=== PATIENT | female | born 1960 | race Caucasian/White ===

== ENCOUNTER 2021-06-14 13:00 | Emergency (ER) | payer SELFPAY ==
[~2021-06-14] VITALS: Ht 160 cm; Wt 81.6 kg
[2021-06-14] MEDS ORDERED: ACETAMINOPHEN 325 MG TAB PO ONE (13:30)
[2021-06-14] MEDS ORDERED: SODIUM CHLORIDE 0.9% 1000ML 1,000 ML IV SCH (13:30)
[2021-06-14] MEDS ORDERED: METOCLOPRAMIDE HCL 10 MG/2ML VIAL IV ONE (13:30)
[2021-06-14] MEDS ORDERED: CASIRIVIMAB/IMDEVIMAB 10 ML in SODIUM CHLORIDE 0.9% 100 ML IV ONE (13:30)
[2021-06-14] MEDS ORDERED: DIPHENHYDRAMINE HCL 25 MG CAP PO ONE (13:30)
== END 2021-06-14 14:02 | disposition home or self-care (01) ==
LOC: ER 13:24
DX: U07.1 COVID-19 (principal); R05.9 Cough, unspecified; J44.9 Chronic obstructive pulmonary disease, unspecified; Z86.718 Personal history of other venous thrombosis and embolism
CPT/HCPCS: 99282

== ENCOUNTER → 2022-04-08 | Day surgery (SDC) | payer BC, SELFPAY ==
[2022-04-04 08:18] LABS: BASOPHILS % 0.3 % (0.0-1.0); EOSINOPHILS # (AUTO) 0.1 (0.0-0.4); EOSINOPHILS % 0.8 % (0.0-6.0); HEMATOCRIT 44.8 % (34.2-44.1); LYMPHOCYTES # (AUTO) 2.5 (1.0-3.2); LYMPHOCYTES % 40.5 % (18.0-39.1); MEAN CORPUSCULAR HEMOGLOBIN 31.9 pg (28-32); MEAN CORPUSCULAR HGB CONC 33.5 g/dL (31-35); MEAN CORPUSCULAR VOLUME 95.3 fL (81-99); MONOCYTES # (AUTO) 0.4 (0.2-0.8); MONOCYTES % 7.1 % (4.4-11.3); NEUTROPHILS # (AUTO) 3.2 (2.1-6.9); PLATELET COUNT 239 x10e3/uL (140-360); RED CELL DISTRIBUTION WIDTH 11.9 % (11.7-14.4)
[~2022-04-08] MED LIST: ACETAMINOPHEN 1000 MG/100 ML IV ONE; AMPICILLIN PO; CYCLOBENZAPRINE5 MG PO; DEXAMETHASONE SOD PHOS INJ 4 MG/ML SDV ONE; ELIQUIS5 MG PO; FENTANYL CITRATE/PF 100MCG/2 ML INJ ONE; LIDOCAINE HCL 2% LOCAL INJ 5 ML SDV VIAL INJ ONE; LOVENOX40 MG/0.4 SC; MIDAZOLAM HCL 2 MG/2 ML VIAL ONE; ONDANSETRON HCL INJ 2MG/ML 2ML 2 MG/ML VIAL ONE; PHENERGAN25 MG/1 ML PO; POVIDONE IODINE 0.05% 0.05 % ML PO ONE; PROPOFOL IV EMULSION 10 MG/ML 20 ML VIAL ONE; SEVOFLURANE INHAL SOLN 250 ML PEN BTL ONE; VENLAFAXINE HCL75 MG PO
[2022-04-08 09:30] VITALS: BP 120/87
== END | disposition home or self-care (01) ==
LOC: OR 05:49
PROVIDERS: ATTEND Orthopaedic Surgery
DX: M75.112 Incomplete rotator cuff tear or rupture of left shoulder, not specified as traumatic (principal); M19.012 Primary osteoarthritis, left shoulder; M75.52 Bursitis of left shoulder; M75.42 Impingement syndrome of left shoulder; J40 Bronchitis, not specified as acute or chronic; F41.9 Anxiety disorder, unspecified; Z88.6 Allergy status to analgesic agent; Z88.8 Allergy status to other drugs, medicaments and biological substances; Z01.810 Encounter for preprocedural cardiovascular examination; Z01.812 Encounter for preprocedural laboratory examination; Z01.818 Encounter for other preprocedural examination; Z20.822 Contact with and (suspected) exposure to COVID-19; Z79.02 Long term (current) use of antithrombotics/antiplatelets; Z79.899 Other long term (current) drug therapy; Z86.718 Personal history of other venous thrombosis and embolism
CPT/HCPCS: 0223U; 29826; 29827; 29999; 36415; 71046; 85025; 93005; C1713 ×2; J0690; J2250; J3010; J1100; J2001; J2405

== ENCOUNTER 2022-10-06 16:06 | Inpatient (IN) | payer OTHER ==
[~2022-10-06] VITALS: Ht 160 cm; Wt 81.6 kg
[~2022-10-06 16:06] MED LIST changes: -ACETAMINOPHEN 1000 MG/100 ML IV ONE; -DEXAMETHASONE SOD PHOS INJ 4 MG/ML SDV ONE; -FENTANYL CITRATE/PF 100MCG/2 ML INJ ONE; -LIDOCAINE HCL 2% LOCAL INJ 5 ML SDV VIAL INJ ONE; -MIDAZOLAM HCL 2 MG/2 ML VIAL ONE; -ONDANSETRON HCL INJ 2MG/ML 2ML 2 MG/ML VIAL ONE; -POVIDONE IODINE 0.05% 0.05 % ML PO ONE; -PROPOFOL IV EMULSION 10 MG/ML 20 ML VIAL ONE; -SEVOFLURANE INHAL SOLN 250 ML PEN BTL ONE
[2022-10-06 16:36] VITALS: BP 140/92
[2022-10-06 16:49] VITALS: BP 140/92
[2022-10-06] MEDS ORDERED: SODIUM CHLORIDE 0.9% 250ML 250 ML ONE (17:09)
[2022-10-06 17:12] VITALS: BP 140/92
[2022-10-06 17:24] LABS: ABG HCO3 25 mmol/L (22-26); ABG PCO2 35 mmHg (35-45); ABG PH 7.45 (7.35-7.45); ABG PO2 83 mmHg (80-105); ABG TCO2 26
[2022-10-06] MEDS ORDERED: VITAMIN B12 IM/IV (17:31)
[2022-10-06] MEDS ORDERED: LIDODERM TOP (17:31)
[2022-10-06] MEDS ORDERED: VENTOLIN HFA18 GM INH (17:32)
[2022-10-06 17:56] LABS: CLARITY,URINE CLEAR (CLEAR); COLOR,URINE YELLOW (YELLOW); KETONES,URINE NEGATIVE (NEGATIVE); LEUKOCYTE ESTERASE ,URINE NEGATIVE (NEGATIVE); NITRITE,URINE NEGATIVE (NEGATIVE); PROTEIN,URINE DIPSTICK NEGATIVE (NEGATIVE); RBC,URINE 0-5 /HPF (0-5); URINE UROBILINOGEN 0.2 mg/dL (0.2 - 1); WBC,URINE (MAN) 0-5 /HPF (0-5)
[2022-10-06 17:57] LABS: BACTERIA,URINE RARE /HPF; EPITHELIAL CELLS,URINE FEW /LPF
[2022-10-06 18:29] LABS: BASOPHILS # (AUTO) 0.1 (0.0-0.1); BASOPHILS % 0.6 % (0.0-1.0); EOSINOPHILS # (AUTO) 0.1 (0.0-0.4); EOSINOPHILS % 1.1 % (0.0-6.0); HEMATOCRIT 43.9 % (34.2-44.1); HEMOGLOBIN 13.9 g/dL (12.0-16.0); LYMPHOCYTES # (AUTO) 4.1 (1.0-3.2); LYMPHOCYTES % 40.7 % (18.0-39.1); MEAN CORPUSCULAR HEMOGLOBIN 32.2 pg (28-32); MEAN CORPUSCULAR HGB CONC 31.7 g/dL (31-35); MEAN CORPUSCULAR VOLUME 101.6 fL (81-99); MONOCYTES % 9.5 % (4.4-11.3); NEUTROPHILS # (AUTO) 4.4 (2.1-6.9); NEUTROPHILS % 43.7 % (38.7-80.0); PLATELET COUNT 269 x10e3/uL (140-360); RED BLOOD COUNT 4.32 x10e6/uL (3.6-5.1); RED CELL DISTRIBUTION WIDTH 12.3 % (11.7-14.4)
[2022-10-06] MEDS ORDERED: ALBUTEROL/IPRATROPIUM 3 ML NEB NEB PRN (18:30)
[2022-10-06] MEDS ORDERED: ACETAMINOPHEN 325 MG TAB PO PRN (18:30)
[2022-10-06] MEDS ORDERED: GUAIFENESIN/DEXTROMETHORPHAN LIQD 5 ML UDC NG PRN (18:30)
[2022-10-06 18:52] LABS: ALBUMIN 2.5 g/dL (3.5-5.0); ALBUMIN/GLOBULIN RATIO 0.7 (0.8-2.0); ANION GAP 12.4 mmol/L (8-16); CALCIUM 8.4 mg/dL (8.4-10.2); CREATININE, SERUM 0.9 mg/dL (0.57-1.11); POTASSIUM 4.4 mmol/L (3.5-5.1)
[2022-10-06 20:00] VITALS: BP 123/77
[2022-10-06] MEDS ORDERED: METHYLPREDNISOLONE SOD SUCC 40 MG/ML VIAL 1ML IV ONE (20:30)
[2022-10-06] MEDS: FAMOTIDINE 20 MG/2 ML VIAL IV SCH (20:45)
[2022-10-06] MEDS: BENZONATATE 100 MG CAP PO SCH (20:45)
[2022-10-06 21:00] VITALS: BP 123/77
[2022-10-06] MEDS: DIPHENHYDRAMINE HCL 25 MG CAP PO PRN (21:21)
[2022-10-07] VITALS (7 sets, daily range): BP systolic 121–142; BP diastolic 81–90
[2022-10-07] MEDS ORDERED: CYCLOBENZAPRINE HCL 10 MG TAB PO SCH (01:15)
[2022-10-07] MEDS ORDERED: PROMETHAZINE HCL 25 MG TAB PO SCH (01:15)
[2022-10-07] MEDS: BENZONATATE 100 MG CAP PO SCH ×3 (05:20→22:20)
[2022-10-07] MEDS: FAMOTIDINE 20 MG/2 ML VIAL IV SCH ×2 (09:00→17:00)
[2022-10-07] MEDS: APIXABAN 5 MG TABLET PO SCH ×2 (09:00→17:00)
[2022-10-07] MEDS ORDERED: PANTOPRAZOLE SOD 40 MG TABEC PO ONE (09:30)
[2022-10-07] MEDS: METHYLPREDNISOLONE SOD SUCC 40 MG/ML VIAL 1ML IV SCH ×2 (09:46→20:55)
[2022-10-07] MEDS: ALBUTEROL/IPRATROPIUM 3 ML NEB NEB PRN (11:03)
[2022-10-07] MEDS: DIPHENHYDRAMINE HCL 25 MG CAP PO PRN (20:37)
[2022-10-07] MEDS: HYDROCODONE/CHLORPHENIRAMINE 5 ML LIQCR PO PRN (20:37)
[2022-10-08] VITALS (8 sets, daily range): BP systolic 113–137; BP diastolic 78–97
[2022-10-08 05:54] LABS: BASOPHILS % 0.4 % (0.0-1.0); HEMATOCRIT 41.6 % (34.2-44.1); HEMOGLOBIN 13.4 g/dL (12.0-16.0); LYMPHOCYTES # (AUTO) 1.3 (1.0-3.2); LYMPHOCYTES % 15.2 % (18.0-39.1); MEAN CORPUSCULAR HEMOGLOBIN 32.1 pg (28-32); MEAN CORPUSCULAR HGB CONC 32.2 g/dL (31-35); MEAN CORPUSCULAR VOLUME 99.8 fL (81-99); MONOCYTES # (AUTO) 0.4 (0.2-0.8); MONOCYTES % 4.9 % (4.4-11.3); NEUTROPHILS # (AUTO) 6.2 (2.1-6.9); NEUTROPHILS % 74.8 % (38.7-80.0); PLATELET COUNT 250 x10e3/uL (140-360); RED BLOOD COUNT 4.17 x10e6/uL (3.6-5.1); RED CELL DISTRIBUTION WIDTH 11.9 % (11.7-14.4)
[2022-10-08] MEDS: BENZONATATE 100 MG CAP PO SCH ×3 (06:03→22:25)
[2022-10-08 06:24] LABS: ALBUMIN 2.5 g/dL (3.5-5.0); ALBUMIN/GLOBULIN RATIO 0.7 (0.8-2.0); ANION GAP 13.2 mmol/L (8-16); CALCIUM 8.5 mg/dL (8.4-10.2); CREATININE, SERUM 0.76 mg/dL (0.57-1.11); MAGNESIUM 2.2 MG/DL (1.3-2.1); POTASSIUM 4.2 mmol/L (3.5-5.1)
[2022-10-08] MEDS ORDERED: PANTOPRAZOLE SOD 40 MG TABEC PO SCH (07:30)
[2022-10-08] MEDS: HYDROCODONE/CHLORPHENIRAMINE 5 ML LIQCR PO PRN ×2 (08:33→20:43)
[2022-10-08] MEDS: APIXABAN 5 MG TABLET PO SCH ×3 (08:33→20:32)
[2022-10-08] MEDS: METHYLPREDNISOLONE SOD SUCC 40 MG/ML VIAL 1ML IV SCH ×2 (08:34→20:32)
[2022-10-08] MEDS: DIPHENHYDRAMINE HCL 25 MG CAP PO PRN ×2 (10:34→20:43)
[2022-10-08] MEDS: ALBUTEROL/IPRATROPIUM 3 ML NEB NEB PRN (19:55)
[2022-10-09] VITALS (7 sets, daily range): BP systolic 132–142; BP diastolic 84–92
[2022-10-09] MEDS ORDERED: LEVALBUTEROL HCL SOLN NEBU 0.63 MG/3 ML NEB INH PRN (04:15)
[2022-10-09] MEDS: BENZONATATE 100 MG CAP PO SCH ×3 (06:14→22:33)
[2022-10-09] MEDS: HYDROCODONE/CHLORPHENIRAMINE 5 ML LIQCR PO PRN ×2 (06:19→15:37)
[2022-10-09] MEDS: DIPHENHYDRAMINE HCL 25 MG CAP PO PRN ×2 (06:24→15:39)
[2022-10-09] MEDS: APIXABAN 5 MG TABLET PO SCH ×2 (08:45→20:39)
[2022-10-09] MEDS: GUAIFENESIN 600MG/DEXTROMETHORPHAN 30MG TABSR PO SCH ×2 (08:57→17:07)
[2022-10-09] MEDS: METHYLPREDNISOLONE SOD SUCC 40 MG/ML VIAL 1ML IV SCH ×2 (08:57→20:39)
[2022-10-09] MEDS: FLUCONAZOLE 100 MG TAB PO SCH (08:57)
[2022-10-09] MEDS: IPRATROPIUM BROMIDE 0.02% 2.5 ML NEB NEB PRN (09:17)
[2022-10-09] MEDS: LEVALBUTEROL HCL SOLN NEBU 1.25 MG/3 ML NEB INH SCH (19:20)
[2022-10-10] VITALS (8 sets, daily range): BP systolic 116–139; BP diastolic 72–95
[2022-10-10] MEDS: BENZONATATE 100 MG CAP PO SCH ×3 (05:48→21:03)
[2022-10-10] MEDS: BUDESONIDE 0.5MG/2 ML NEB INH SCH ×2 (06:35→18:57)
[2022-10-10] MEDS: LEVALBUTEROL HCL SOLN NEBU 1.25 MG/3 ML NEB INH SCH ×3 (06:35→18:57)
[2022-10-10] MEDS ORDERED: SODIUM CHLORIDE 0.9% 0 ML ONE (08:40)
[2022-10-10] MEDS ORDERED: SODIUM CHLORIDE 0.9% 250ML 250 ML ONE (08:41)
[2022-10-10] MEDS: METHYLPREDNISOLONE SOD SUCC 40 MG/ML VIAL 1ML IV SCH ×2 (08:50→21:03)
[2022-10-10] MEDS: HYDROCODONE/CHLORPHENIRAMINE 5 ML LIQCR PO PRN ×2 (08:51→17:40)
[2022-10-10] MEDS: GUAIFENESIN 600MG/DEXTROMETHORPHAN 30MG TABSR PO SCH ×2 (08:51→17:40)
[2022-10-10] MEDS: FLUCONAZOLE 100 MG TAB PO SCH (08:51)
[2022-10-10] MEDS: APIXABAN 5 MG TABLET PO SCH ×2 (08:51→21:05)
[2022-10-10] MEDS: DIPHENHYDRAMINE HCL 25 MG CAP PO PRN ×2 (08:51→17:50)
[2022-10-11] VITALS (7 sets, daily range): BP systolic 119–141; BP diastolic 72–95
[2022-10-11] MEDS: LEVALBUTEROL HCL SOLN NEBU 1.25 MG/3 ML NEB INH SCH ×5 (01:00→23:00)
[2022-10-11] MEDS: BENZONATATE 100 MG CAP PO SCH ×3 (05:31→21:01)
[2022-10-11] MEDS: BUDESONIDE 0.5MG/2 ML NEB INH SCH ×2 (06:51→19:00)
[2022-10-11] MEDS: FLUCONAZOLE 100 MG TAB PO SCH (08:44)
[2022-10-11] MEDS: METHYLPREDNISOLONE SOD SUCC 40 MG/ML VIAL 1ML IV SCH ×2 (08:44→21:01)
[2022-10-11] MEDS: APIXABAN 5 MG TABLET PO SCH ×2 (08:44→21:01)
[2022-10-11] MEDS: GUAIFENESIN 600MG/DEXTROMETHORPHAN 30MG TABSR PO SCH ×2 (08:44→16:49)
[2022-10-11] MEDS: HYDROCODONE/CHLORPHENIRAMINE 5 ML LIQCR PO PRN ×2 (08:44→16:49)
[2022-10-11] MEDS: DIPHENHYDRAMINE HCL 25 MG CAP PO PRN ×2 (09:06→16:49)
[2022-10-11] MEDS ORDERED: FUROSEMIDE INJ 10 MG/ML 2 ML VIAL IV ONE (09:30)
[2022-10-12] VITALS (8 sets, daily range): BP systolic 130–156; BP diastolic 80–97
[2022-10-12] MEDS: HYDROCODONE/CHLORPHENIRAMINE 5 ML LIQCR PO PRN ×3 (00:24→17:20)
[2022-10-12] MEDS: DIPHENHYDRAMINE HCL 25 MG CAP PO PRN ×3 (00:24→17:20)
[2022-10-12 06:15] LABS: BASOPHILS # (AUTO) 0.1 (0.0-0.1); BASOPHILS % 0.5 % (0.0-1.0); HEMATOCRIT 40.6 % (34.2-44.1); HEMOGLOBIN 13.7 g/dL (12.0-16.0); LYMPHOCYTES # (AUTO) 1.1 (1.0-3.2); LYMPHOCYTES % 7.7 % (18.0-39.1); MEAN CORPUSCULAR HEMOGLOBIN 32.6 pg (28-32); MEAN CORPUSCULAR HGB CONC 33.7 g/dL (31-35); MEAN CORPUSCULAR VOLUME 96.7 fL (81-99); MONOCYTES # (AUTO) 0.6 (0.2-0.8); MONOCYTES % 4.6 % (4.4-11.3); NEUTROPHILS # (AUTO) 11.4 (2.1-6.9); NEUTROPHILS % 82.9 % (38.7-80.0); PLATELET COUNT 203 x10e3/uL (140-360); RED CELL DISTRIBUTION WIDTH 12.9 % (11.7-14.4)
[2022-10-12] MEDS: BENZONATATE 100 MG CAP PO SCH ×3 (06:33→21:21)
[2022-10-12 06:34] LABS: ANION GAP 15.6 mmol/L (8-16); CALCIUM 8.1 mg/dL (8.4-10.2); CREATININE, SERUM 0.85 mg/dL (0.57-1.11); POTASSIUM 4.6 mmol/L (3.5-5.1)
[2022-10-12] MEDS: LEVALBUTEROL HCL SOLN NEBU 1.25 MG/3 ML NEB INH SCH ×3 (06:43→19:35)
[2022-10-12] MEDS: BUDESONIDE 0.5MG/2 ML NEB INH SCH ×2 (06:43→19:35)
[2022-10-12] MEDS: FLUCONAZOLE 100 MG TAB PO SCH (08:33)
[2022-10-12] MEDS: GUAIFENESIN 600MG/DEXTROMETHORPHAN 30MG TABSR PO SCH ×2 (08:33→17:20)
[2022-10-12] MEDS: APIXABAN 5 MG TABLET PO SCH ×2 (08:34→21:21)
[2022-10-12] MEDS: METHYLPREDNISOLONE SOD SUCC 40 MG/ML VIAL 1ML IV SCH ×2 (08:34→21:21)
[2022-10-13] VITALS (8 sets, daily range): BP systolic 107–156; BP diastolic 71–98
[2022-10-13] MEDS: LEVALBUTEROL HCL SOLN NEBU 1.25 MG/3 ML NEB INH SCH ×4 (01:00→19:00)
[2022-10-13] MEDS: HYDROCODONE/CHLORPHENIRAMINE 5 ML LIQCR PO PRN ×2 (05:40→21:09)
[2022-10-13] MEDS: BENZONATATE 100 MG CAP PO SCH ×3 (05:40→21:10)
[2022-10-13] MEDS: DIPHENHYDRAMINE HCL 25 MG CAP PO PRN ×2 (05:40→21:09)
[2022-10-13 05:41] LABS: BASOPHILS % 0.3 % (0.0-1.0); HEMATOCRIT 41.1 % (34.2-44.1); HEMOGLOBIN 13.7 g/dL (12.0-16.0); LYMPHOCYTES # (AUTO) 1.4 (1.0-3.2); LYMPHOCYTES % 10.7 % (18.0-39.1); MEAN CORPUSCULAR HEMOGLOBIN 32.1 pg (28-32); MEAN CORPUSCULAR HGB CONC 33.3 g/dL (31-35); MEAN CORPUSCULAR VOLUME 96.3 fL (81-99); MONOCYTES # (AUTO) 0.7 (0.2-0.8); MONOCYTES % 5.3 % (4.4-11.3); NEUTROPHILS # (AUTO) 10.1 (2.1-6.9); NEUTROPHILS % 80.2 % (38.7-80.0); PLATELET COUNT 207 x10e3/uL (140-360); RED BLOOD COUNT 4.27 x10e6/uL (3.6-5.1); RED CELL DISTRIBUTION WIDTH 12.9 % (11.7-14.4)
[2022-10-13 06:05] LABS: ANION GAP 12.9 mmol/L (8-16); CALCIUM 8.6 mg/dL (8.4-10.2); CREATININE, SERUM 0.77 mg/dL (0.57-1.11); POTASSIUM 4.9 mmol/L (3.5-5.1)
[2022-10-13] MEDS: BUDESONIDE 0.5MG/2 ML NEB INH SCH ×2 (07:10→19:15)
[2022-10-13] MEDS: APIXABAN 5 MG TABLET PO SCH ×2 (08:49→21:09)
[2022-10-13] MEDS: FLUCONAZOLE 100 MG TAB PO SCH (08:49)
[2022-10-13] MEDS: GUAIFENESIN 600MG/DEXTROMETHORPHAN 30MG TABSR PO SCH ×2 (08:49→17:08)
[2022-10-13] MEDS: METHYLPREDNISOLONE SOD SUCC 40 MG/ML VIAL 1ML IV SCH ×2 (08:49→21:09)
[2022-10-14] VITALS (8 sets, daily range): BP systolic 119–140; BP diastolic 72–94
[2022-10-14] MEDS: LEVALBUTEROL HCL SOLN NEBU 1.25 MG/3 ML NEB INH SCH ×4 (01:00→19:45)
[2022-10-14] MEDS: DIPHENHYDRAMINE HCL 25 MG CAP PO PRN ×2 (05:30→21:39)
[2022-10-14] MEDS: BENZONATATE 100 MG CAP PO SCH ×3 (05:30→22:00)
[2022-10-14] MEDS: HYDROCODONE/CHLORPHENIRAMINE 5 ML LIQCR PO PRN ×2 (05:30→21:39)
[2022-10-14] MEDS: BUDESONIDE 0.5MG/2 ML NEB INH SCH ×2 (06:38→08:25)
[2022-10-14] MEDS: IPRATROPIUM BROMIDE 0.02% 2.5 ML NEB NEB PRN (08:10)
[2022-10-14] MEDS: METHYLPREDNISOLONE SOD SUCC 40 MG/ML VIAL 1ML IV SCH (08:24)
[2022-10-14] MEDS: GUAIFENESIN 600MG/DEXTROMETHORPHAN 30MG TABSR PO SCH ×2 (08:25→16:58)
[2022-10-14] MEDS: FLUCONAZOLE 100 MG TAB PO SCH (08:25)
[2022-10-14] MEDS: APIXABAN 5 MG TABLET PO SCH ×3 (08:25→21:39)
[2022-10-14] MEDS: PANTOPRAZOLE SOD 40 MG TABEC PO SCH (16:58)
[2022-10-15] VITALS: BP 124/75
[2022-10-15] MEDS: LEVALBUTEROL HCL SOLN NEBU 1.25 MG/3 ML NEB INH SCH ×2 (02:30→06:52)
[2022-10-15] MEDS ORDERED: HYDROXYZINE HCL 25 MG TAB PO ONE (03:15)
[2022-10-15 04:00] VITALS: BP 112/62
[2022-10-15] MEDS: BENZONATATE 100 MG CAP PO SCH (05:20)
[2022-10-15] MEDS: DIPHENHYDRAMINE HCL 25 MG CAP PO PRN (05:30)
[2022-10-15] MEDS: HYDROCODONE/CHLORPHENIRAMINE 5 ML LIQCR PO PRN (05:30)
[2022-10-15] MEDS: BUDESONIDE 0.5MG/2 ML NEB INH SCH (06:51)
[2022-10-15 08:36] VITALS: BP 129/97
[2022-10-15] MEDS: GUAIFENESIN 600MG/DEXTROMETHORPHAN 30MG TABSR PO SCH (08:39)
[2022-10-15] MEDS: APIXABAN 5 MG TABLET PO SCH (08:39)
[2022-10-15] MEDS: FLUCONAZOLE 100 MG TAB PO SCH (08:39)
[2022-10-15] MEDS: PANTOPRAZOLE SOD 40 MG TABEC PO SCH (08:39)
[2022-10-15 08:55] VITALS: BP 129/97
== END 2022-10-15 08:59 | disposition home or self-care (01) | DRG 190 ==
LOC: MED/SURG3 16:06
PROVIDERS: ADMIT Internal Medicine; ATTEND Internal Medicine
PROC: 0CJS8ZZ Inspection of Larynx, Via Natural or Artificial Opening Endoscopic (ICD-10-PCS; principal; 2022-10-08)
PROC: BD15ZZZ Fluoroscopy of Upper GI (ICD-10-PCS; 2022-10-14)
DX: J44.1 Chronic obstructive pulmonary disease with (acute) exacerbation (principal); J96.01 Acute respiratory failure with hypoxia; K21.9 Gastro-esophageal reflux disease without esophagitis; I10 Essential (primary) hypertension; E66.9 Obesity, unspecified; J06.9 Acute upper respiratory infection, unspecified; I25.10 Atherosclerotic heart disease of native coronary artery without angina pectoris; F90.9 Attention-deficit hyperactivity disorder, unspecified type; Z86.711 Personal history of pulmonary embolism; Z68.31 Body mass index [BMI] 31.0-31.9, adult; Z88.8 Allergy status to other drugs, medicaments and biological substances; Z88.1 Allergy status to other antibiotic agents; Z88.5 Allergy status to narcotic agent; Z79.899 Other long term (current) drug therapy; Z79.01 Long term (current) use of anticoagulants; Z98.890 Other specified postprocedural states; Z83.3 Family history of diabetes mellitus; Z83.49 Family history of other endocrine, nutritional and metabolic diseases; Z87.891 Personal history of nicotine dependence
CPT/HCPCS: 36415; 36600; 70220; 71045; 74240; 80048; 80053; 81001; 82805; 83735; 83880; 85025; 86001; 86003; 87070; 87086; 87205; 93306; 94060; 94640; 94799; 96360; 99252; J0456; J0696; J1940; J2920; J3410; J7050